=== PATIENT | male | born 1950 | race Caucasian/White ===

== ENCOUNTER 2019-01-26 17:26 | Inpatient (IN) | payer MEDICARE, MEDICAID ==
--- NOTE | 2019-01-26 17:37 | ED Physician Chart ---
ED Chief Complaint/HPI - Patient Information Date Seen:: 01/26/19 Time Seen:: 17:20 Chief Complaint:: Weakness History of Present Illness:: onset x 3 days of weakness, paresthesias, fever, and dizziness/vertigo; no report of trauma, H/As, neck pain, C/P, SOB, Abd. Pain, A/N/V/D/C,, chills, or urinary s/s Historian:: Patient, EMS Review:: Nurse's Note Reviewed, Old Chart Reviewed, EMS run form Reviewed <Austin Ahuja - Last Filed: 01/26/19 17:33> - Patient Information Allergies:: Allergies Allergy/AdvReac Type Severity Reaction Status Date / Time cefazolin [From [facility]] Allergy Verified 01/26/19 17:42 Vitals:: Vital Signs - 8 hr 01/26/19 01/26/19 17:43 18:45 Temp 99.1 F HR 104 84 RR 20 18 BP 134/79 117/82 O2 Sat % 98 96 <Nolan Sheth - Last Filed: 01/26/19 20:11> ED Review of Systems - Review of Systems General/Constitutional: Fever, No chills, No weight loss, Weakness, No diaphoresis, No edema, No loss of appetite Skin: No skin lesions, No rash, No bruising Head: No headache, No light-headedness Eyes: No loss of vision, No pain, No diplopia ENT: No earache, No nasal drainage, No sore throat, No tinnitus Neck: No neck pain, No swelling, No thyromegaly, No stiffness, No mass noted Cardio Vascular: No chest pain, No palpitations, No PND, No orthopnea, No edema Pulmonary: No SOB, No cough, No sputum, No wheezing GI: No nausea, No vomiting, No diarrhea, No pain, No melena, No hematochezia, No constipation, No hematemesis G/U: No dysuria, No frequency, No hematuria, No nacturia Musculoskeletal: No bone or joint pain, No back pain, No muscle pain Endocrine: No polyuria, No polydipsia Psychiatric: No prior psych history, No depression, No anxiety, No suicidal ideation, No homicidal ideation, No auditory hallucination, No visual hallucination Hematopoietic: No bruising, No lymphadenopathy Allergic/Immuno: No urticaria, No angioedema Neurological: No syncope, No focal symptoms, Weakness, No paresthesia, No headache, No seizure, Dizziness, No confusion, Vertigo <HortenciaAustin diana - Last Filed: 01/26/19 17:33> ED Past Medical History - Past Medical History Obtainable: Yes Past Medical History: HTN, CAD, CVA/TIA, Dyslipidemia Family History: HTN Social History: Non Smoker, No Alcohol, No Drug Use, , Care Facility Surgical History: None Psychiatricy History: None Medication: Reviewed <HortenciatoddrodriguezSandyAustin - Last Filed: 01/26/19 17:33> ED Physical Exam - Physical Examination General/Constitutional: Awake, Well-developed, well-nourished, Alert, No distress, GCS 15, Non-toxic appearing, Ambulatory Head: Atraumatic Eyes: Lids, conjuctiva normal, PERRL, EOMI Skin: Nl inspection, No rash, No skin lesions, No ecchymosis, Well hydrated, No lymphadenopathy ENMT: External ears, nose nl, TM canals nl, Nasal exam nl, Lips, teeth, gums nl , Oropharynx nl, Tonsils nl Neck: Nontender, Full ROM w/o pain, No JVD, No nuchal rigidity, No bruit, No mass, No stridor Respiratory: Nl effort/Exclusion, Clear to Auscultation, No Wheeze/Rhonchi/Rales Cardio Vascular: RRR, No murmur, gallop, rubs, NL S1 S2, Carotid/Femoral/Distal pulses equal bilaterally GI: No tenderness/rebounding/guarding, No organomegaly, No hernia, Normal BS's, Nondistended, No mass/bruits, No McBurney tenderness Other GI comments:: no pulsatile masses : No CVA tenderness Extremities: No tenderness or effusion, Full ROM, normal strength in all extremities, No edema, Normal digits & nails Neuro/Psych: Alert/oriented, DTR's symmetric, Normal sensory exam, Normal motor strength, Judgement/insight normal, Mood normal, Normal gait, No focal deficits Misc: Normal back, No paraspinal tenderness <Austin Ahuja - Last Filed: 01/26/19 17:33> ED Labs/Radiology/EKG Results - Lab Results Results: Laboratory Tests 01/26/19 01/26/19 01/26/19 18:15 18:15 18:15 WBC 8.0 RBC 4.42 Hgb 13.9 Hct 40.7 L MCV 92.1 MCH 31.5 H MCHC Differential 34.2 RDW 14.4 Plt Count 200 MPV 9.5 Neutrophils % 74.4 Lymphocytes % 14.9 L Monocytes % 7.7 Eosinophils % 2.2 Basophils % 0.8 PT 10.3 INR 0.99 PTT (Actin FS) 23.5 L Sodium 138 Potassium 4.2 Chloride 103 Carbon Dioxide 26.2 Anion Gap 13.0 BUN 15 Creatinine 0.9 Est GFR ( Amer) > 60.0 Est GFR (Non-Af Amer) > 60.0 BUN/Creatinine Ratio 16.7 Glucose 111 H Calcium 9.7 Total Bilirubin 0.3 AST 9 L ALT 7 Alkaline Phosphatase 54 Creatine Kinase 53 Total Protein 7.0 Albumin 4.1 L Globulin 2.9 Albumin/Globulin Ratio 1.4 Laboratory Last Values WBC 8.0 Th/cmm (4.8-10.8) 01/26/19 18:15 RBC 4.42 Mil/cmm (3.80-5.80) 01/26/19 18:15 Hgb 13.9 gm/dL (12-16) 01/26/19 18:15 Hct 40.7 % (41.0-60) L 01/26/19 18:15 MCV 92.1 fl (80-99) 01/26/19 18:15 MCH 31.5 pg (27.0-31.0) H 01/26/19 18:15 MCHC Differential 34.2 pg (28.0-36.0) 01/26/19 18:15 RDW 14.4 % (11.5-20.0) 01/26/19 18:15 Plt Count 200 Th/cmm (150-400) 01/26/19 18:15 MPV 9.5 fl 01/26/19 18:15 Neutrophils % 74.4 % (40.0-80.0) 01/26/19 18:15 Lymphocytes % 14.9 % (20.0-50.0) L 01/26/19 18:15 Monocytes % 7.7 % (2.0-10.0) 01/26/19 18:15 Eosinophils % 2.2 % (0.0-5.0) 01/26/19 18:15 Basophils % 0.8 % (0.0-2.0) 01/26/19 18:15 PT 10.3 SECONDS (9.5-11.5) 01/26/19 18:15 INR 0.99 (0.5-1.4) 01/26/19 18:15 PTT (Actin FS) 23.5 SECONDS (26.0-38.0) L 01/26/19 18:15 Sodium 138 mEq/L (136-145) 01/26/19 18:15 Potassium 4.2 mEq/L (3.5-5.1) 01/26/19 18:15 Chloride 103 mEq/L (98-107) 01/26/19 18:15 Carbon Dioxide 26.2 mEq/L (21.0-31.0) 01/26/19 18:15 Anion Gap 13.0 (7.0-16.0) 01/26/19 18:15 BUN 15 mg/dL (7-25) 01/26/19 18:15 Creatinine 0.9 mg/dL (0.7-1.3) 01/26/19 18:15 Est GFR ( Amer) > 60.0 ml/min (>90) 01/26/19 18:15 Est GFR (Non-Af Amer) > 60.0 ml/min 01/26/19 18:15 BUN/Creatinine Ratio 16.7 01/26/19 18:15 Glucose 111 mg/dL (70-105) H 01/26/19 18:15 Whole Bld Lactic Acid 0.99 mmol/L (0.60-1.99) 01/26/19 18:15 Calcium 9.7 mg/dL (8.6-10.3) 01/26/19 18:15 Total Bilirubin 0.3 mg/dL (0.3-1.0) 01/26/19 18:15 AST 9 U/L (13-39) L 01/26/19 18:15 ALT 7 U/L (7-52) 01/26/19 18:15 Alkaline Phosphatase 54 U/L (34-104) 01/26/19 18:15 Creatine Kinase 53 U/L (30-223) 01/26/19 18:15 Troponin I < 0.01 ng/mL (0.01-0.05) L 01/26/19 18:15 Total Protein 7.0 gm/dL (6.0-8.3) 01/26/19 18:15 Albumin 4.1 gm/dL (4.2-5.5) L 01/26/19 18:15 Globulin 2.9 gm/dL 01/26/19 18:15 Albumin/Globulin Ratio 1.4 (1.0-1.8) 01/26/19 18:15 Pending lab results: urinalysis, blood cultures. <Nolan Sheth - Last Filed: 01/26/19 20:11> ED Septic Shock - . Is Septic Shock (SBP<90, OR Lactate>4 mmol\L) present?: No <Austin Ahuja - Last Filed: 01/26/19 17:33> - <6hrs of presentation: Vital Signs: Vital Signs - 8 hr 01/26/19 01/26/19 17:43 18:45 Temp 99.1 F HR 104 84 RR 20 18 BP 134/79 117/82 O2 Sat % 98 96 <Nolan Sheth - Last Filed: 01/26/19 20:11> ED Reassessment (Disposition) - Reassessment Reassessment Condition:: Improved - Diagnosis Diagnosis:: Weakness; Dizziness; Vertigo; Fever; CVA <Austin Ahuja - Last Filed: 01/26/19 17:33> - Reassessment Reassessment:: [address] Ahuja to follow on pending CT report/lab results and to contact admitting attending physician for admission. Head CT revealed atrophy. Left basal ganglia old infarct, and recent right mid/upper parietal lobe infarct. Official report per Dr. Gordo branham, radiologist. Available lab and CT results, etc. have been reviewed with pt. Management plan has been discussed. 2008 Case was discussed with Dr. Simth with pertinent info reviewed. Pt is to be admitted to [facility] under his care. - Diagnosis Diagnosis:: Additional diagnoses: Recent right mid/upper parietal lobe infarct. H/O HTN - Patient Disposition Admitted to:: Telemetry Admitting Medical Physician:: Esha Smith Time:: 20:10 Condition at Disposition:: Stable <Nolan Sheth - Last Filed: 01/26/19 20:11>
[2019-01-26 18:38] LABS: % BASOPHILS 0.8 % (0.0-2.0); % EOSINOPHILS 2.2 % (0.0-5.0); % LYMPHOCYTES 14.9 % (20.0-50.0); % MONOCYTES 7.7 % (2.0-10.0); % NEUTROPHILS 74.4 % (40.0-80.0); BASOPHILE ABSOLUTE 0.1 Th/cumm (0-0.2); EOSINOPHILE ABSOLUTE 0.2 Th/cmm (0.1-0.4); HEMATOCRIT 40.7 % (41.0-60); HEMOGLOBIN 13.9 gm/dL (12-16); LYMPHOCYTE ABSOLUTE 1.2 Th/cmm (1.5-3.0); MEAN CELL VOLUME 92.1 fl (80-99); MEAN CORPUSCULAR HEMOGLOBIN 31.5 pg (27.0-31.0); MEAN CORPUSCULAR HGB CONC 34.2 pg (28.0-36.0); MONOCYTE ABSOLUTE 0.6 Th/cmm (0.3-1.0); NEUTROPHILE ABSOLUTE 5.9 Th/cmm (1.8-8.0); PLATELET COUNT 200 Th/cmm (150-400); RED BLOOD COUNT 4.42 Mil/cmm (3.80-5.80); RED CELL DISTRIBUTION WIDTH 14.4 % (11.5-20.0)
[2019-01-26 18:57] LABS: INR 0.99 (0.5-1.4)
[2019-01-26 19:07] LABS: ALB/GLOB RATIO 1.4 (1.0-1.8); ALBUMIN 4.1 gm/dL (4.2-5.5); ALKALINE PHOSPHATASE 54 U/L (34-104); BILIRUBIN,TOTAL 0.3 mg/dL (0.3-1.0); BUN - UREA NITROGEN 15 mg/dL (7-25); CALCIUM SERUM 9.7 mg/dL (8.6-10.3); CARBON DIOXIDE 26.2 mEq/L (21.0-31.0); CHLORIDE 103 mEq/L (98-107); CREATININE - SERUM 0.9 mg/dL (0.7-1.3); CREATININE KINASE 53 U/L (30-223); GFR AFRICAN-AMERICAN > 60.0 ml/min (>90); GFR NON AFRICAN-AMERICAN > 60.0 ml/min; GLUCOSE 111 mg/dL (70-105); POTASSIUM SERUM 4.2 mEq/L (3.5-5.1); SGOT 9 U/L (13-39); SGPT/ALT 7 U/L (7-52); SODIUM SERUM 138 mEq/L (136-145)
[2019-01-26] MEDS ORDERED: Aspirin 81mg Chewable Tab PO STA (19:16)
[2019-01-26] MEDS ORDERED: Levofloxacin 500mg/100mL 500 MG in Premix Fluid 1 BAG IV ONE (19:16)
[2019-01-26] MEDS ORDERED: Aspirin 81mg Chewable Tab ONE (19:31)
[2019-01-26] MEDS ORDERED: Levofloxacin 500mg/100mL 500 MG/100 ML BAG IV ONE (19:32)
[2019-01-26 20:37] LABS: URINE SOURCE MIDSTREAM
[2019-01-26 20:45] LABS: URINE BILIRUBIN NEGATIVE (NEGATIVE); URINE BLOOD TRACE (NEGATIVE); URINE GLUCOSE (UA) NEGATIVE (NEGATIVE); URINE KETONE NEGATIVE (NEGATIVE); URINE LEUKOCYTE ESTERASE SMALL (NEGATIVE); URINE MICROSCOPIC INDICATED? YES; URINE NITRATE POSITIVE (NEGATIVE); URINE PH 5.5 (4.6 - 8.0); URINE PROTEIN NEGATIVE (NEGATIVE); URINE UROBILINOGEN 0.2 E.U./dL (0.2 - 1.0)
[2019-01-26 20:49] LABS: URINE CLARITY SLIGHT CLOUDY (CLEAR); URINE COLOR YELLOW
[2019-01-26 20:50] LABS: URINE RBC 25-50 /hpf (0-5)
[2019-01-26 20:51] LABS: URINE BACTERIA MODERATE /hpf (NONE SEEN); URINE EPITHELIAL CELLS NONE SEEN /lpf (FEW)
[2019-01-27 05:04] LABS: % BASOPHILS 0.5 % (0.0-2.0); % EOSINOPHILS 2.3 % (0.0-5.0); % LYMPHOCYTES 18.4 % (20.0-50.0); % MONOCYTES 9.3 % (2.0-10.0); % NEUTROPHILS 69.5 % (40.0-80.0); EOSINOPHILE ABSOLUTE 0.2 Th/cmm (0.1-0.4); HEMATOCRIT 39.9 % (41.0-60); HEMOGLOBIN 13.4 gm/dL (12-16); LYMPHOCYTE ABSOLUTE 1.4 Th/cmm (1.5-3.0); MEAN CELL VOLUME 91.9 fl (80-99); MEAN CORPUSCULAR HEMOGLOBIN 30.9 pg (27.0-31.0); MEAN CORPUSCULAR HGB CONC 33.6 pg (28.0-36.0); MONOCYTE ABSOLUTE 0.7 Th/cmm (0.3-1.0); NEUTROPHILE ABSOLUTE 5.1 Th/cmm (1.8-8.0); PLATELET COUNT 191 Th/cmm (150-400); RED BLOOD COUNT 4.35 Mil/cmm (3.80-5.80); RED CELL DISTRIBUTION WIDTH 14.3 % (11.5-20.0); WHITE BLOOD COUNT 7.4 Th/cmm (4.8-10.8)
[2019-01-27 06:07] LABS: ALB/GLOB RATIO 1.3 (1.0-1.8); ALBUMIN 3.8 gm/dL (4.2-5.5); ALKALINE PHOSPHATASE 56 U/L (34-104); ANION GAP 12.7 (7.0-16.0); BILIRUBIN,TOTAL 0.5 mg/dL (0.3-1.0); BUN - UREA NITROGEN 13 mg/dL (7-25); CALCIUM SERUM 9.5 mg/dL (8.6-10.3); CHLORIDE 102 mEq/L (98-107); CHOLESTEROL 174 mg/dL (<200); CREATININE - SERUM 0.8 mg/dL (0.7-1.3); GFR AFRICAN-AMERICAN > 60.0 ml/min (>90); GFR NON AFRICAN-AMERICAN > 60.0 ml/min; GLUCOSE 92 mg/dL (70-105); HDL -HIGH DENSITY LIPOPROTEIN 38 mg/dL (23-92); POTASSIUM SERUM 3.7 mEq/L (3.5-5.1); SGOT 12 U/L (13-39); SGPT/ALT 10 U/L (7-52); SODIUM SERUM 136 mEq/L (136-145); TOTAL PROTEIN,SERUM 6.7 gm/dL (6.0-8.3); TRIGLYCERIDES 129 mg/dL (<150)
[2019-01-27 07:53] LABS: MAGNESIUM 1.9 mg/dL (1.9-2.7)
--- NOTE | 2019-01-27 08:08 | Diagnostic Imaging Report ---
CHEST X-RAY: AP view INDICATION: pain COMPARISON: None FINDINGS: There is no focal consolidation or pleural effusions there is mild cardiomegaly. Degenerative changes of the spine are noted. IMPRESSION: No focal consolidation identified. Mild cardiomegaly.
--- NOTE | 2019-01-27 08:12 | Diagnostic Imaging Report ---
Head CT without intravenous contrast Indication: Weakness, paresthesia Comparison: None Technique: Axial images were obtained from the vertex to the skull base without IV contrast. Coronal reconstructions were made. Total DLP: 900, [id number] FINDINGS: The brain obtained without contrast demonstrate no evidence of an acute hemorrhage. There is evidence of previous old left basal ganglia infarct extending to the left periventricular region. Moderate white matter disease is noted. The ventricles and basal cisterns are patent. No mass effect or midline shift. Atrophy is noted. No evidence of a skull fracture or focal soft tissue swelling. There is mucosal thickening of paranasal sinuses. IMPRESSION: No evidence of an acute intracranial hemorrhage. Old left basal ganglia infarct extending to the left periventricular region. Moderate supratentorial white matter disease which is nonspecific and may be due to chronic microvessel ischemia. Atrophy.
[2019-01-27] MEDS: Atorvastatin Calcium 10 MG TAB PO SCH (09:06)
[2019-01-27] MEDS: Aspirin 81mg Chewable Tab PO SCH (09:07)
--- NOTE | 2019-01-27 11:35 | Diagnostic Imaging Report ---
Carotid ultrasound HISTORY: Weakness COMPARISON: None Technique: Longitudinal and transverse sonographic sector images of the carotid arteries were obtained with doppler analysis. FINDINGS: Exam is limited due to patient lack of mobility and neck stiffness. There is poor evaluation of vertebral arteries. Exam of the right side demonstrates mild generalized atherosclerotic vascular disease, greatest at the carotid bulb. Exam of the left side demonstrates mild generalized atherosclerotic vascular disease, greatest at the carotid bulb. No evidence of elevated velocities. IMPRESSION: Limited exam due to body habitus. Mild atherosclerosis. No evidence of hemodynamically significant stenosis. Nonvisualization of the bilateral vertebral arteries due to body habitus..
[2019-01-27] MEDS: Levofloxacin 500mg/100mL 500 MG/100 ML BAG IV SCH (20:12)
[2019-01-28 08:05] LABS: A1C 5.8 % (4.8-5.6)
[2019-01-28] MEDS: Aspirin 81mg Chewable Tab PO SCH (09:49)
[2019-01-28] MEDS: Atorvastatin Calcium 10 MG TAB PO SCH (09:50)
--- NOTE | 2019-01-28 18:35 | Cardiology ---
01/27/2019 ECHOCARDIOGRAM REPORT The patient of Dr. Smith M-MODE ECHOCARDIOGRAM: Mitral valve, anterior leaflet of mitral valve shows normal excursion, EF velocity. Posterior leaflet of the mitral valve shows normal excursion. Left ventricular posterior wall shows increased thickness, normal excursion. Interventricular septum shows increased thickness, normal excursion, hypertrophy of the left ventricle, ejection fraction 65%. Left atrium is normal. Aortic root shows normal dimension, normal excursion of aortic leaflets. CONCLUSION: Hypertrophy of the left ventricle, ejection fraction 65%. 2D ECHO: Long axis view showed normal sized left ventricle with hypertrophy of the left ventricle. Left atrium is normal. Aortic root shows normal dimension, normal excursion of aortic leaflets. Short axis view of mitral valve normal. Short axis view of aortic valve normal. Apical four chamber view showed normal sized left ventricle with hypertrophy of the left ventricle. Left atrium normal. Right ventricular cavity, right atrium normal, no pericardial effusion. CONCLUSION: Hypertrophy of the left ventricle, ejection fraction 65%. Doppler study shows mild mitral regurgitation, mild tricuspid regurgitation, right ventricular systolic pressure 30 mmHg. [facility]# [id number]
[2019-01-28] MEDS: Levofloxacin 500mg/100mL 500 MG/100 ML BAG IV SCH (20:20)
--- NOTE | 2019-01-28 23:29 | History & Physical ---
ADMIT DATE: 01/26/2019 CHIEF COMPLAINT: Weakness. HISTORY OF PRESENT ILLNESS: A 68-year-old male who is a jail resident who has a 3-day history of increasing weakness and paresthesias associated with fever. PAST MEDICAL HISTORY: Hypertension, CAD, CVA, TIA, dyslipidemia. FAMILY HISTORY: Noncontributory. SOCIAL HISTORY: The patient is a jail resident. SURGICAL HISTORY: None. MEDICATIONS: See medication list. REVIEW OF SYSTEMS: GENERAL: Denies any fever or chills. CARDIOVASCULAR: Denies chest pain. RESPIRATORY: Denies shortness of breath. GASTROINTESTINAL: Denies nausea, vomiting, abdominal pain. GENITOURINARY: Denies increased frequency or urgency. NEUROLOGIC: No headaches, seizures, or syncope. All systems are reviewed and are negative. PHYSICAL EXAMINATION: GENERAL: The patient is well developed, well nourished, in no apparent distress. VITAL SIGNS: Temperature 98.3, heart rate 89, blood pressure 110/64, respirations 18, O2 98%. HEENT: Head; normocephalic, atraumatic. NECK: Supple. No mass. LUNGS: Clear bilaterally. HEART: Regular rate and rhythm. ABDOMEN: Soft, nontender. LABORATORY DATA: WBC is 7.4, H and H of 13.4 and 39.9, platelets 91. Sodium 136, potassium 3.7, chloride 102, BUN 13, creatinine 0.8. The patient had a urinalysis done, positive for UTI. DIAGNOSTICS: The patient had a carotid Doppler done. Impression is limited exam due to body habitus, mild atherosclerosis. No evidence of hemodynamically significant stenosis. The patient also had a CT of the head done. Impression is no evidence of an acute intracranial hemorrhage. ASSESSMENT: Acute urinary tract infection, acute febrile illness, weakness, vertigo, recent right mid upper parietal cerebrovascular accident, hypertension. PLAN: The patient to be admitted to the telemetry unit. We will get Neurology consultation. Keep patient on 2 g sodium diet. Fall precautions will be initiated. The patient on IV antibiotics. JOB# [id number]
[2019-01-29] MEDS: Atorvastatin Calcium 10 MG TAB PO SCH ×2 (08:51→08:58)
[2019-01-29] MEDS: Aspirin 81mg Chewable Tab PO SCH ×2 (08:51→08:58)
--- NOTE | 2019-01-29 14:24 | Internal Medicine Prog Note ---
Internal Medicine Subjective - Subjective Service Date: 01/29/19 Patient seen and examined:: with staff Patient is:: asleep Per staff patient has:: tolerating meds Internal Medicine Objective - Results Result Diagrams: 01/27/19 04:30 01/27/19 04:30 Recent Labs: Laboratory Last Values WBC 7.4 Th/cmm (4.8-10.8) 01/27/19 04:30 RBC 4.35 Mil/cmm (3.80-5.80) 01/27/19 04:30 Hgb 13.4 gm/dL (12-16) 01/27/19 04:30 Hct 39.9 % (41.0-60) L 01/27/19 04:30 MCV 91.9 fl (80-99) 01/27/19 04:30 MCH 30.9 pg (27.0-31.0) 01/27/19 04:30 MCHC Differential 33.6 pg (28.0-36.0) 01/27/19 04:30 RDW 14.3 % (11.5-20.0) 01/27/19 04:30 Plt Count 191 Th/cmm (150-400) 01/27/19 04:30 MPV 9.6 fl 01/27/19 04:30 Neutrophils % 69.5 % (40.0-80.0) 01/27/19 04:30 Lymphocytes % 18.4 % (20.0-50.0) L 01/27/19 04:30 Monocytes % 9.3 % (2.0-10.0) 01/27/19 04:30 Eosinophils % 2.3 % (0.0-5.0) 01/27/19 04:30 Basophils % 0.5 % (0.0-2.0) 01/27/19 04:30 PT 10.3 SECONDS (9.5-11.5) 01/26/19 18:15 INR 0.99 (0.5-1.4) 01/26/19 18:15 PTT (Actin FS) 23.5 SECONDS (26.0-38.0) L 01/26/19 18:15 Sodium 136 mEq/L (136-145) 01/27/19 04:30 Potassium 3.7 mEq/L (3.5-5.1) 01/27/19 04:30 Chloride 102 mEq/L (98-107) 01/27/19 04:30 Carbon Dioxide 25.0 mEq/L (21.0-31.0) 01/27/19 04:30 Anion Gap 12.7 (7.0-16.0) 01/27/19 04:30 BUN 13 mg/dL (7-25) 01/27/19 04:30 Creatinine 0.8 mg/dL (0.7-1.3) 01/27/19 04:30 Est GFR ( Amer) > 60.0 ml/min (>90) 01/27/19 04:30 Est GFR (Non-Af Amer) > 60.0 ml/min 01/27/19 04:30 BUN/Creatinine Ratio 16.3 01/27/19 04:30 Glucose 92 mg/dL (70-105) 01/27/19 04:30 POC Glucose 175 MG/DL (70 - 105) H 01/27/19 09:31 Whole Bld Lactic Acid 0.99 mmol/L (0.60-1.99) 01/26/19 18:15 Calcium 9.5 mg/dL (8.6-10.3) 01/27/19 04:30 Magnesium 1.9 mg/dL (1.9-2.7) 01/27/19 04:30 Total Bilirubin 0.5 mg/dL (0.3-1.0) 01/27/19 04:30 AST 12 U/L (13-39) L 01/27/19 04:30 ALT 10 U/L (7-52) 01/27/19 04:30 Alkaline Phosphatase 56 U/L (34-104) 01/27/19 04:30 Creatine Kinase 53 U/L (30-223) 01/26/19 18:15 Troponin I < 0.01 ng/mL (0.01-0.05) L 01/26/19 18:15 Total Protein 6.7 gm/dL (6.0-8.3) 01/27/19 04:30 Albumin 3.8 gm/dL (4.2-5.5) L 01/27/19 04:30 Globulin 2.9 gm/dL 01/27/19 04:30 Albumin/Globulin Ratio 1.3 (1.0-1.8) 01/27/19 04:30 Triglycerides 129 mg/dL (<150) 01/27/19 04:30 Cholesterol 174 mg/dL (<200) 01/27/19 04:30 LDL Cholesterol Direct 114 mg/dL (75-193) 01/27/19 04:30 HDL Cholesterol 38 mg/dL (23-92) 01/27/19 04:30 TSH 3.28 uIU/ml (0.34-5.60) 01/27/19 04:30 Urine Source MIDSTREAM 01/26/19 20:36 Urine Color YELLOW 01/26/19 20:36 Urine Clarity SLIGHT CLOUDY (CLEAR) 01/26/19 20:36 Urine pH 5.5 (4.6 - 8.0) 01/26/19 20:36 Ur Specific Porter >= 1.030 (1.005-1.030) 01/26/19 20:36 Urine Protein NEGATIVE mg/dL (NEGATIVE) 01/26/19 20:36 Urine Glucose (UA) NEGATIVE mg/dL (NEGATIVE) 01/26/19 20:36 Urine Ketones NEGATIVE mg/dL (NEGATIVE) 01/26/19 20:36 Urine Blood TRACE (NEGATIVE) 01/26/19 20:36 Urine Nitrate POSITIVE (NEGATIVE) H 01/26/19 20:36 Urine Bilirubin NEGATIVE (NEGATIVE) 01/26/19 20:36 Urine Urobilinogen 0.2 E.U./dL (0.2 - 1.0) 01/26/19 20:36 Ur Leukocyte Esterase SMALL (NEGATIVE) H 01/26/19 20:36 Urine RBC 25-50 /hpf (0-5) H 01/26/19 20:36 Urine WBC 10-25 /hpf (0-5) H 01/26/19 20:36 Ur Epithelial Cells NONE SEEN /lpf (FEW) 01/26/19 20:36 Urine Bacteria MODERATE /hpf (NONE SEEN) H 01/26/19 20:36 - Physical Exam Vitals and I&O: Vital Signs Temp 98.6 F 01/29/19 11:50 Pulse 95 01/29/19 11:50 Resp 18 01/29/19 11:50 BP 128/97 01/29/19 11:50 Pulse Ox 95 01/29/19 11:50 Intake & Output 01/28/19 01/29/19 01/29/19 18:59 06:59 18:59 Intake Total 800 300 Output Total 0 Balance 800 300 Weight (lbs) 194 lb 192 lb 11.2 oz Intake: Oral 800 300 Output: Stool 0 Other: # Voids 3 3 Weight Source Bedscale Bedscale Active Medications: Current Medications Aspirin (Aspirin Chewable) 81 mg PO DAILY COUNTS INCLUDE 234 BEDS AT THE [facility] Stop: 03/28/19 08:59 Last Admin: 01/29/19 08:58 Dose: Not Given Atorvastatin Calcium (Lipitor) 20 mg PO DAILY COUNTS INCLUDE 234 BEDS AT THE [facility]; Protocol Stop: 03/28/19 08:59 Last Admin: 01/29/19 08:58 Dose: Not Given Levofloxacin (Levaquin Pb) 500 mg in 100 mls @ 100 mls/hr IV Q24HR COUNTS INCLUDE 234 BEDS AT THE [facility] Stop: 03/28/19 19:59 Last Admin: 01/28/19 20:20 Dose: 100 mls/hr General: weak HEENT: NC/AT, PERRLA Neck: Supple Lungs: CTAB Cardiovascular: RRR, Normal S1, Normal S2, without murmur Abdomen: soft, non-tender, non-distended, positive bowel sound Extremities: excoriation Internal Medicine Assmt/Plan - Assessment Assessment: acute uti acute febrile illness weakness vertigo recent right mid upper parietal cerebrovascular accident htn - Plan Plan: fall precautions am labs continue ivabx await for urine culture continue current plan of care
[2019-01-29] MEDS ORDERED: Hydrocodone/APAP 5mg/325mg Tab PO PRN (14:42)
[2019-01-29] MEDS: Levofloxacin 500mg/100mL 500 MG/100 ML BAG IV SCH (21:04)
[2019-01-30] MEDS ORDERED: Fleet Enema 135 mL RC PRN ×2 (06:07→16:00)
[2019-01-30 06:32] LABS: % BASOPHILS 0.6 % (0.0-2.0); % EOSINOPHILS 2.5 % (0.0-5.0); % LYMPHOCYTES 17.4 % (20.0-50.0); % MONOCYTES 8.7 % (2.0-10.0); % NEUTROPHILS 70.8 % (40.0-80.0); BASOPHILE ABSOLUTE 0.1 Th/cumm (0-0.2); EOSINOPHILE ABSOLUTE 0.3 Th/cmm (0.1-0.4); HEMATOCRIT 43.6 % (41.0-60); HEMOGLOBIN 14.8 gm/dL (12-16); LYMPHOCYTE ABSOLUTE 1.9 Th/cmm (1.5-3.0); MEAN CELL VOLUME 91.6 fl (80-99); MEAN CORPUSCULAR HEMOGLOBIN 31.1 pg (27.0-31.0); MEAN CORPUSCULAR HGB CONC 33.9 pg (28.0-36.0); MONOCYTE ABSOLUTE 0.9 Th/cmm (0.3-1.0); NEUTROPHILE ABSOLUTE 7.6 Th/cmm (1.8-8.0); PLATELET COUNT 209 Th/cmm (150-400); RED BLOOD COUNT 4.76 Mil/cmm (3.80-5.80); RED CELL DISTRIBUTION WIDTH 14.4 % (11.5-20.0); WHITE BLOOD COUNT 10.8 Th/cmm (4.8-10.8)
[2019-01-30 07:43] LABS: ANION GAP 14.2 (7.0-16.0); BUN - UREA NITROGEN 20 mg/dL (7-25); CALCIUM SERUM 9.7 mg/dL (8.6-10.3); CARBON DIOXIDE 23.7 mEq/L (21.0-31.0); CHLORIDE 102 mEq/L (98-107); CREATININE - SERUM 0.9 mg/dL (0.7-1.3); GFR AFRICAN-AMERICAN > 60.0 ml/min (>90); GFR NON AFRICAN-AMERICAN > 60.0 ml/min; GLUCOSE 103 mg/dL (70-105); POTASSIUM SERUM 3.9 mEq/L (3.5-5.1); SODIUM SERUM 136 mEq/L (136-145)
[2019-01-30] MEDS: Aspirin 81mg Chewable Tab PO SCH (09:35)
[2019-01-30] MEDS: Atorvastatin Calcium 10 MG TAB PO SCH (09:35)
[2019-01-30] MEDS ORDERED: Meropenem 1 GM in Sodium Chloride 0.9% 100 ML IV SCH (11:00)
[2019-01-30] MEDS: Morphine Sulfate 2 mg/mL 1mL Syr IVP PRN ×2 (11:30→23:40)
[2019-01-30] MEDS ORDERED: KETOCONAZOLE 2% 120 ML SHAMP TP PRN (15:32)
[2019-01-30] MEDS ORDERED: Lactulose 10 Gm/15 mL 30mL UDC PO PRN (15:32)
[2019-01-30] MEDS: Meropenem 1 GM in Sodium Chloride 0.9% 100 ML IV SCH ×2 (15:40→23:01)
--- NOTE | 2019-01-30 15:52 | Internal Medicine Prog Note ---
Internal Medicine Subjective - Subjective Service Date: 01/30/19 Patient seen and examined:: with staff Patient is:: awake, verbal Patient Complaints of:: other Per staff patient has:: no adverse event, no episodes of fall, tolerating meds Internal Medicine Objective - Results Result Diagrams: 01/30/19 05:37 01/30/19 05:37 Recent Labs: Laboratory Last Values WBC 10.8 Th/cmm (4.8-10.8) 01/30/19 05:37 RBC 4.76 Mil/cmm (3.80-5.80) 01/30/19 05:37 Hgb 14.8 gm/dL (12-16) 01/30/19 05:37 Hct 43.6 % (41.0-60) 01/30/19 05:37 MCV 91.6 fl (80-99) 01/30/19 05:37 MCH 31.1 pg (27.0-31.0) H 01/30/19 05:37 MCHC Differential 33.9 pg (28.0-36.0) 01/30/19 05:37 RDW 14.4 % (11.5-20.0) 01/30/19 05:37 Plt Count 209 Th/cmm (150-400) 01/30/19 05:37 MPV 9.7 fl 01/30/19 05:37 Neutrophils % 70.8 % (40.0-80.0) 01/30/19 05:37 Lymphocytes % 17.4 % (20.0-50.0) L 01/30/19 05:37 Monocytes % 8.7 % (2.0-10.0) 01/30/19 05:37 Eosinophils % 2.5 % (0.0-5.0) 01/30/19 05:37 Basophils % 0.6 % (0.0-2.0) 01/30/19 05:37 PT 10.3 SECONDS (9.5-11.5) 01/26/19 18:15 INR 0.99 (0.5-1.4) 01/26/19 18:15 PTT (Actin FS) 23.5 SECONDS (26.0-38.0) L 01/26/19 18:15 Sodium 136 mEq/L (136-145) 01/30/19 05:37 Potassium 3.9 mEq/L (3.5-5.1) 01/30/19 05:37 Chloride 102 mEq/L (98-107) 01/30/19 05:37 Carbon Dioxide 23.7 mEq/L (21.0-31.0) 01/30/19 05:37 Anion Gap 14.2 (7.0-16.0) 01/30/19 05:37 BUN 20 mg/dL (7-25) 01/30/19 05:37 Creatinine 0.9 mg/dL (0.7-1.3) 01/30/19 05:37 Est GFR ( Amer) > 60.0 ml/min (>90) 01/30/19 05:37 Est GFR (Non-Af Amer) > 60.0 ml/min 01/30/19 05:37 BUN/Creatinine Ratio 22.2 01/30/19 05:37 Glucose 103 mg/dL (70-105) 01/30/19 05:37 POC Glucose 175 MG/DL (70 - 105) H 01/27/19 09:31 Whole Bld Lactic Acid 0.99 mmol/L (0.60-1.99) 01/26/19 18:15 Calcium 9.7 mg/dL (8.6-10.3) 01/30/19 05:37 Magnesium 1.9 mg/dL (1.9-2.7) 01/27/19 04:30 Total Bilirubin 0.5 mg/dL (0.3-1.0) 01/27/19 04:30 AST 12 U/L (13-39) L 01/27/19 04:30 ALT 10 U/L (7-52) 01/27/19 04:30 Alkaline Phosphatase 56 U/L (34-104) 01/27/19 04:30 Creatine Kinase 53 U/L (30-223) 01/26/19 18:15 Troponin I < 0.01 ng/mL (0.01-0.05) L 01/26/19 18:15 Total Protein 6.7 gm/dL (6.0-8.3) 01/27/19 04:30 Albumin 3.8 gm/dL (4.2-5.5) L 01/27/19 04:30 Globulin 2.9 gm/dL 01/27/19 04:30 Albumin/Globulin Ratio 1.3 (1.0-1.8) 01/27/19 04:30 Triglycerides 129 mg/dL (<150) 01/27/19 04:30 Cholesterol 174 mg/dL (<200) 01/27/19 04:30 LDL Cholesterol Direct 114 mg/dL (75-193) 01/27/19 04:30 HDL Cholesterol 38 mg/dL (23-92) 01/27/19 04:30 TSH 3.28 uIU/ml (0.34-5.60) 01/27/19 04:30 Urine Source MIDSTREAM 01/26/19 20:36 Urine Color YELLOW 01/26/19 20:36 Urine Clarity SLIGHT CLOUDY (CLEAR) 01/26/19 20:36 Urine pH 5.5 (4.6 - 8.0) 01/26/19 20:36 Ur Specific [place] >= 1.030 (1.005-1.030) 01/26/19 20:36 Urine Protein NEGATIVE mg/dL (NEGATIVE) 01/26/19 20:36 Urine Glucose (UA) NEGATIVE mg/dL (NEGATIVE) 01/26/19 20:36 Urine Ketones NEGATIVE mg/dL (NEGATIVE) 01/26/19 20:36 Urine Blood TRACE (NEGATIVE) 01/26/19 20:36 Urine Nitrate POSITIVE (NEGATIVE) H 01/26/19 20:36 Urine Bilirubin NEGATIVE (NEGATIVE) 01/26/19 20:36 Urine Urobilinogen 0.2 E.U./dL (0.2 - 1.0) 01/26/19 20:36 Ur Leukocyte Esterase SMALL (NEGATIVE) H 01/26/19 20:36 Urine RBC 25-50 /hpf (0-5) H 01/26/19 20:36 Urine WBC 10-25 /hpf (0-5) H 01/26/19 20:36 Ur Epithelial Cells NONE SEEN /lpf (FEW) 01/26/19 20:36 Urine Bacteria MODERATE /hpf (NONE SEEN) H 01/26/19 20:36 - Physical Exam Vitals and I&O: Vital Signs Temp 97.5 F 01/30/19 08:00 Pulse 92 01/30/19 08:00 Resp 18 01/30/19 12:00 BP 125/83 01/30/19 08:00 Pulse Ox 97 01/30/19 08:00 Intake & Output 01/29/19 01/30/19 01/30/19 18:59 06:59 18:59 Intake Total 500 Balance 500 Weight (lbs) 87.09 kg Intake: Oral 500 Other: # Voids 3 # Bowel Movements 1 Stool Characteristics Soft Liquid Brown Weight Source Bedscale Active Medications: Current Medications Acetaminophen/Hydrocodone Bitart ([place] 5mg/325mg) 1 tab PO Q6H PRN PRN Reason: Pain (Mild) Stop: 03/30/19 14:41 Aspirin (Aspirin Chewable) 81 mg PO DAILY [facility] Stop: 03/28/19 08:59 Last Admin: 01/30/19 09:35 Dose: Not Given Atorvastatin Calcium (Lipitor) 20 mg PO DAILY [facility]; Protocol Stop: 03/28/19 08:59 Last Admin: 01/30/19 09:35 Dose: Not Given Docusate Sodium (Colace) 100 mg PO DAILY [facility] Stop: 04/01/19 08:59 Meropenem 1 gm/ Sodium (Chloride) 100 mls @ 100 mls/hr IV Q8H [facility] Stop: 03/31/19 14:59 Last Admin: 01/30/19 15:40 Dose: 100 mls/hr Ketoconazole (Nizoral) 120 ml TP PRN PRN PRN Reason: SHOWER DAYS/SCALP DRYNESS Stop: 03/31/19 15:31 Lactulose (Cephulac) 20 gm PO DAILY PRN PRN Reason: Constipation Stop: 03/31/19 15:31 Metoprolol Tartrate (Lopressor) 50 mg PO BID [facility] Stop: 03/31/19 16:59 Miscellaneous (Acetaminophen [Tylenol]) 650 mg PO Q6H PRN PRN Reason: PAIN Miscellaneous ([place] Acids/Protein Hydrolys [Pro-Stat Awc Liquid]) 30 ml PO DAILY [facility] Stop: 04/01/19 08:59 Miscellaneous (L. Acidophilus/L.Bulgaricus [Lactobacillus Tablet]) 2 each PO DAILY [facility] Stop: 04/01/19 08:59 Morphine Sulfate (Morphine) 2 mg IVP Q4HR PRN PRN Reason: Severe Pain Stop: 03/31/19 11:17 Last Admin: 01/30/19 11:30 Dose: 2 mg Nifedipine (Procardia Xl) 30 mg PO DAILY [facility] Stop: 04/01/19 08:59 Sodium Phosphate (Fleet Enema) 135 ml RC PRN PRN PRN Reason: Constipation Stop: 03/31/19 06:06 Tamsulosin HCl (Flomax) 0.4 mg PO HS [facility] Stop: 03/31/19 20:59 Physical Exam: 68 y/o male patient c/o weakness. General: weak HEENT: NC/AT, PERRLA Neck: Supple Lungs: CTAB Cardiovascular: RRR, Normal S1, Normal S2, without murmur Abdomen: soft, non-tender, non-distended, positive bowel sound Extremities: excoriation Neurological: no change Internal Medicine Assmt/Plan - Assessment Assessment: Acute uti. acute febrile illness.weakness. vertigo. recent right mid upper parietal cerebrovascular accident. htn. - Plan Plan: Continuation of care Monitor Vitals and Labs. Continue present meds as directed. Monitor Diet/Nutritional support. Pain Management. Physical therapy. Occupational therapy. Safety precaution. Supportive care. Fall precaution, frequent nursing rounds, and as needed restraints to prevent fall. Continue collaborating with consulting specialists, case management and nursing team. Will Monitor patient and continue current treatment plan as ordered. Nutritional Asmnt/Malnutr-PDOC - Dietary Evaluation Malnutrition Findings (Please click <Entered> for more info): see orders.
--- NOTE | 2019-01-30 16:57 | Consultation ---
Consult Note - Consult Note Service Date: 01/30/19 Referring Physician: Seth Osorio Consult Note: PHYSICIAN Consultation Note: Date of Admission: 01/26/19 Purpose of Consultation: UTI Chief Complaint: [facility],WEAKNESS,VERTIGO,RECENT RIGHT MID UPPER PART. History of Present Illness: 68 y/M admitted for generalized weakness and fever. On initial evaluation,his temperature was 99.1F and WBC Count was 8K. UA showed pyuria and bacteriuria. Urine culture grew ESBL E coli. Meropenem was started and ID consult was called for antibiotic management. Past Medical History: HTN, CAD, Cardiomyopathy, LVH. dydlipidemia. Allergies Allergy/AdvReac Type Severity Reaction Status Date / Time cefazolin [From Anc] Allergy Verified 01/26/19 17:42 Vital Signs Temp 95.4 F 01/30/19 16:00 Pulse 103 01/30/19 16:20 Resp 18 01/30/19 16:00 BP 142/93 01/30/19 16:20 Pulse Ox 98 01/30/19 16:00 Intake & Output 01/29/19 01/30/19 01/30/19 18:59 06:59 18:59 Intake Total 500 Balance 500 Weight (lbs) 87.09 kg Intake: Oral 500 Other: # Voids 3 # Bowel Movements 1 Stool Characteristics Soft Liquid Brown Weight Source Bedscale Laboratory Results - last 24 hr 01/30/19 01/30/19 05:37 05:37 WBC 10.8 RBC 4.76 Hgb 14.8 Hct 43.6 MCV 91.6 MCH 31.1 H MCHC Differential 33.9 RDW 14.4 Plt Count 209 MPV 9.7 Neutrophils % 70.8 Lymphocytes % 17.4 L Monocytes % 8.7 Eosinophils % 2.5 Basophils % 0.6 Sodium 136 Potassium 3.9 Chloride 102 Carbon Dioxide 23.7 Anion Gap 14.2 BUN 20 Creatinine 0.9 Est GFR ( Amer) > 60.0 Est GFR (Non-Af Amer) > 60.0 BUN/Creatinine Ratio 22.2 Glucose 103 Calcium 9.7 Home Medication Medication Instructions Recorded Type Acetaminophen [Tylenol] 650 mg PO Q6H PRN 01/26/19 History Amino Acids/Protein Hydrolys 30 ml PO DAILY 01/26/19 History [Pro-Stat Sugar Free Awc 887 ml] Docusate Sodium [Colace] 100 mg PO DAILY 01/26/19 History Ketoconazole [Nizoral] 120 ml TP PRN PRN 01/26/19 History L. Acidophilus/L.bulgaricus 2 each PO DAILY 01/26/19 History [Lactobacillus Tablet] Lactulose 30 ml PO DAILY PRN 01/26/19 History Metoprolol Tartrate [Lopressor] 50 mg PO BID 01/26/19 History NIFEdipine [Procardia Xl] 30 mg PO DAILY 01/26/19 History Tamsulosin [Flomax] 0.4 mg PO HS 01/26/19 History Tramadol HCl [Ultram] 50 mg PO Q6H PRN 01/26/19 History Current Medications Generic Name Dose Route Start Last Admin Trade Name Freq PRN Reason Stop Dose Admin Acetaminophen 650 mg 01/30/19 15:32 Tylenol PO Q6H PRN PAIN (MILD) Acetaminophen/Hydrocodone Bitart 1 tab 01/29/19 14:42 [place] 5mg/325mg PO 03/30/19 14:41 Q6H PRN Pain (MOD) Aspirin 81 mg 01/27/19 09:00 01/30/19 09:35 Aspirin Chewable PO 03/28/19 08:59 Not Given DAILY [facility] Atorvastatin Calcium 20 mg 01/27/19 09:00 01/30/19 09:35 Lipitor PO 03/28/19 08:59 Not Given DAILY [facility] Protocol Docusate Sodium 100 mg 01/31/19 09:00 Colace PO 04/01/19 08:59 DAILY [facility] Meropenem 1 gm/ Sodium 100 mls @ 100 mls/hr 01/30/19 15:00 01/30/19 15:40 Chloride IV 03/31/19 14:59 100 mls/hr Q8H [facility] Administration Ketoconazole 120 ml 01/30/19 15:32 Nizoral TP 03/31/19 15:31 PRN PRN SHOWER DAYS/SCALP DRYNESS Lactobacillus Rhamnosus 1 each 01/31/19 09:00 [place] 15b PO 04/01/19 08:59 DAILY [facility] Lactulose 20 gm 01/30/19 15:32 Cephulac PO 03/31/19 15:31 DAILY PRN Constipation Metoprolol Tartrate 50 mg 01/30/19 17:00 01/30/19 16:20 Lopressor PO 03/31/19 16:59 50 mg BID [facility] Administration Morphine Sulfate 2 mg 01/30/19 11:18 01/30/19 11:30 Morphine IVP 03/31/19 11:17 2 mg Q4HR PRN Administration Severe Pain Nifedipine 30 mg 01/31/19 09:00 Procardia Xl PO 04/01/19 08:59 DAILY [facility] Sodium Phosphate 135 ml 01/30/19 16:00 Fleet Enema RC 03/31/19 06:06 DAILY PRN Constipation Tamsulosin HCl 0.4 mg 01/30/19 21:00 Flomax PO 03/31/19 20:59 HS MARTIN Review of Systems: A 12 point ROS was reviewed with the pertinent positive and negatives noted in the HPI. Social History Smoking Status Former smoker Drug Use No Alcohol Use Yes Family Medical History Unknown. Physical Exam: General: COmfortable, not in any acute distress. WN WD. HEENT: Head: NC NT. Iral cavity: moist, pink tongue. EYES: no palloe, no icterus , pupil PERRLA. Neck: Supple, no JVD, no carotid bruit, Cardio: s1 and S2 WNL. Respiratory: CTAP Abdominal: Soft NT ND BS present. Genital/Urinary: deferred Extremities: NCCE Neurological: AAOx3. Assessment: 1. UTI ESBL E coli. 2. HTN 3, CAD. Plan: Continue meropenem for 7 days, Thank you Dr Osorio for involving me in taking care of this patient. Signed, Tra Franco M.D. [id number]
--- NOTE | 2019-01-30 22:59 | Consultation ---
DATE OF CONSULTATION: 01/30/2019 NEUROLOGY CONSULTATION HISTORY OF PRESENT ILLNESS: The patient is 68 years old. The patient admitted because of complaints of speech difficulty. He said that he felt numbness and tingling on the face. The patient has drooling of the face. He appears dizzy, difficulty walking. He says he not walked since he has been here for 3 days. PAST MEDICAL HISTORY: 1. Previous strokes. 2. Previous TIA. 3. Coronary artery disease. 4. Hypertension. 5. Dyslipidemia. SOCIAL HISTORY: Does not smoke or drink. PAST SURGICAL HISTORY: None. MEDICATIONS: Aspirin 81, atorvastatin, Levaquin, [place]. REVIEW OF SYSTEMS: Twelve point negative except for above. PHYSICAL EXAMINATION: VITAL SIGNS: Temperature 98.2, blood pressure 135/88, pulse is 90. NECK: Supple. No neck bruits. Normal heart sounds. LUNGS: Clear. NEUROLOGIC: The patient is lying in bed, awake, alert. Speech is definitely dysarthric. Pupils reactive to light. No nystagmus. Right facial droop. MOTOR: He will lift arms up ____ about equal. [id number] little bit off. The patient's legs will lift them both up. Reflexes about 1+ upper extremity, knees are -1. The patient's ankles are absent. INVESTIGATIONS: CT scan of the head, old left basal ganglia infarction in periventricular region. Carotid Doppler, no significant stenosis. LABORATORY DATA: WBC 10.8, hemoglobin 14.8, platelets 209. Glucose 175. LDL 114. Urine, wbc's 10-25. ASSESSMENT: 1. The patient's stroke with dysarthria, dizziness, unsteadiness, paresthesia, possible brainstem posterior circulation. 2. The patient with history of previous strokes. We will need to rule out whether there is underlying other etiology is embolic. 3. History of hypertension. 4. History of hyperlipidemia. PLAN: MRI head, MRA head and neck. The patient on aspirin, continue with that. Physical therapy rehabilitation and speech. JOB# [id number]
[2019-01-31] MEDS: Meropenem 1 GM in Sodium Chloride 0.9% 100 ML IV SCH ×2 (06:10→15:30)
[2019-01-31 06:46] LABS: HEMATOCRIT 40.5 % (41.0-60); HEMOGLOBIN 13.7 gm/dL (12-16); MEAN CELL VOLUME 90.8 fl (80-99); MEAN CORPUSCULAR HEMOGLOBIN 30.6 pg (27.0-31.0); MEAN CORPUSCULAR HGB CONC 33.7 pg (28.0-36.0); PLATELET COUNT 206 Th/cmm (150-400); RED BLOOD COUNT 4.45 Mil/cmm (3.80-5.80); RED CELL DISTRIBUTION WIDTH 14.6 % (11.5-20.0); WHITE BLOOD COUNT 9.5 Th/cmm (4.8-10.8)
[2019-01-31 06:55] LABS: ANION GAP 12.4 (7.0-16.0); BUN - UREA NITROGEN 19 mg/dL (7-25); CALCIUM SERUM 9.2 mg/dL (8.6-10.3); CARBON DIOXIDE 24.5 mEq/L (21.0-31.0); CHLORIDE 102 mEq/L (98-107); GFR AFRICAN-AMERICAN > 60.0 ml/min (>90); GFR NON AFRICAN-AMERICAN > 60.0 ml/min; GLUCOSE 122 mg/dL (70-105); POTASSIUM SERUM 3.9 mEq/L (3.5-5.1); SODIUM SERUM 135 mEq/L (136-145)
[2019-01-31 08:53] LABS: BAND NEUTROPHILE 1 % (0-10); BASOPHIL 0 % (0-3); EOSINOPHIL 1 % (0-5); LYMPHOCYTE 17 % (20-50); MONOCYTE 6 % (2-10); NEUTROPHILS 75 % (40-80); PLATELET ESTIMATE ADEQUATE (NORMAL)
[2019-01-31] MEDS: Atorvastatin Calcium 10 MG TAB PO SCH ×2 (08:59→09:03)
[2019-01-31] MEDS: Lactobacillus Rhamnosus GG 15 Billion CFU CAP.SPRINK PO SCH ×2 (09:00→09:03)
[2019-01-31] MEDS: Aspirin 81mg Chewable Tab PO SCH ×2 (09:00→09:30)
[2019-01-31] MEDS ORDERED: NIFEdipine 30 mg ER Tab PO SCH (09:00)
[2019-01-31] MEDS ORDERED: Non-Formulary Item 1 EA (Amino Acids/Protein Hydrolys [Pro-Stat Awc Liquid] 30 ML) PO SCH (09:00)
[2019-01-31] MEDS: Morphine Sulfate 2 mg/mL 1mL Syr IVP PRN (20:54)
--- NOTE | 2019-02-01 16:21 | Progress Notes ---
DATE: 01/31/2019 SUBJECTIVE: The patient was seen in his room. The patient is asleep, but easily arousable. The patient has in and out confusion, a poor historian. Otherwise, the patient appears to be in no acute distress. OBJECTIVE: VITAL SIGNS: Temperature 96.7, heart rate 89, blood pressure 140/75, respiration 19 and 98 % on room air. HEENT: Head is atraumatic and normocephalic. Eyes: Bilateral conjunctivae are clear. Bilateral pupils are equally round and reactive. NECK: Supple. No JVD. CARDIOVASCULAR: S1 and S2, without murmur. PULMONARY: Clear to auscultation. GASTROINTESTINAL: Soft and nontender without guarding. Positive bowel sounds. MUSCULOSKELETAL: No clubbing. No cyanosis. Positive muscle weakness and unsteady gait. ASSESSMENT: 1. Urinary tract infection. 2. History of cerebrovascular accident. 3. Hypertension. 4. Hyperlipidemia. PLAN: We will initiate discharge planning. We will wait for a clearance from the neurologist and ID doctor. Otherwise, the patient may go back [facility] if medically cleared from consults. Treatment plans were discussed with the patient's nurse. Treatment plans were discussed with Dr. Osorio. JOB# [id number]
--- NOTE | 2019-02-07 00:39 | Discharge Summary ---
DATE OF DISCHARGE: 01/31/2019 HOSPITAL COURSE: The patient admitted on 01/26/2019, discharged on 01/31/2019 to ____ Hospital. The patient is a 68-year-old male patient. The patient has increasing weakness and paresthesia. The patient was admitted for neuropathy, UTI and the patient was worked up and was treated for that and also had a history of right parietal cerebrovascular accident was found out. The patient was given antibiotic and physical therapy. The patient was sent to ____ physical therapy. PATIENT'S CONDITION AT THE TIME OF DISCHARGE: Stable. MEDICATIONS: See reconciliation sheet. ACTIVITY AND DIET: See the order sheet. JOB# [id number]
== END 2019-01-31 21:25 | DRG 690 ==
LOC: ER 17:26 → TELE 20:15
PROVIDERS: ADMIT Internal Medicine; ATTEND Internal Medicine
DX: N39.0 Urinary tract infection, site not specified (principal); I42.9 Cardiomyopathy, unspecified; I10 Essential (primary) hypertension; I25.10 Atherosclerotic heart disease of native coronary artery without angina pectoris; E78.5 Hyperlipidemia, unspecified; B96.20 Unspecified Escherichia coli [E. coli] as the cause of diseases classified elsewhere; Z16.12 Extended spectrum beta lactamase (ESBL) resistance; I69.322 Dysarthria following cerebral infarction
CPT/HCPCS: 36415-UA; 70450-TC; 70549-TC; 71045-TC; 80048-TC; 80053-TC; 80061-TC; 81001-TC; 82550-TC; 82948-90; 83036-90; 83605; 83735-TC; 84443-TC; 84484-TC; 85007-TC; 85025-TC; 85610-TC; 85730-TC; 87086-90; 93307-TC; 93880-TC; J1956; J2185; J2270; J7040; Z7610; Z7610-TC